=== PATIENT | female | born 1995 | race Two or more races ===

== ENCOUNTER 2025-06-01 09:51 | Inpatient (IN) | payer MEDICAID, OTHER ==
[~2025-06-01] VITALS: Ht 165.1 cm; Wt 65.0 kg
--- NOTE | 2025-06-01 10:31 | ED.PDOC ---
VULNERABILITY ASSESSMENT ANALYST HPI Comments 30 y.o female presents to the ED for a chief complaint of suprapubic pain that started last night and worsened while at home. Patient describes pain as a cramping sensation, states developing shakiness and sweats then shortly after having a near syncopal episode at work. 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 Additionally, patient noted vaginal spotting x 2 days ago which has resolved. She denies any blood clots, fever, chills, nausea, vomiting, back pain, or recent trauma to pain site. She denies any medical history or allergies. Chief Complaint: Abdominal Pain Time Seen by MD: 10:09 Reviewed Notes: Nurses Notes, Medications, Allergies Allergies: Coded Allergies: NO KNOWN ALLERGIES (Unverified , 06/01/25) Information Source: Patient Mode of Arrival: Ambulatory Timing: Hours Severity: Moderate Vaginal Discharge: None Vaginal Lesions: None Bleeding Quality: Products of Conception Vaginal Mass: None Onset Of Mass/Bleeding: Spontaneous Sexual Activity: Last Consensual 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 MACHINE History 3 Para 1 AB 1 LMP 04/25/25 Family History Family History: Reviewed,noncontributory to illness Social History Smoker: Non-Smoker Alcohol: Denies ETOH Use Drugs: Denies Drug Use Lives In: Home Constitutional: denies: chills, diaphoresis, fatigue, fever, malaise, sweats, weakness, others EENTM: denies: blurred vision, double vision, ear bleeding, ear discharge, ear drainage, ear pain, ear ringing, eye pain, eye redness, hearing loss, mouth pain, mouth swelling, nasal discharge, nose bleeding, nose congestion, nose pain, photophobia, tearing, throat pain, throat swelling, voice changes, others Respiratory: denies: cough, hemoptysis, orthopnea, SOB at rest, shortness of breath, SOB with excertion, stridor, wheezing, others Cardiovascular: denies: chest pain, dizzy spells, diaphoresis, Dyspnea on exertion, edema, irregular heart beat, left arm pain, lightheadedness, palpitations, PND, syncope, others Gastrointestinal: reports: abdominal pain; denies: abdomen distended, blood streaked bowels, constipated, diarrhea, dysphagia, difficulty swallowing, he matemesis, melena, nausea, poor appetite, poor fluid intake, rectal bleeding, rectal pain, vomiting, others Genitourinary: reports: abnormal vagina bleeding, ; denies: burning, dyspareunia, dysuria, flank pain, frequency, hematuria, incontinence, pain, vagina discharge, urgency, others Neurological: denies: dizziness, fainting, headache, left sided numbness, left sided weakness, numbness, paresthesia, pre-existing deficit, right sided numbness, right sided weakness, seizure, speech problems, tingling, tremors, weakness, others Musculoskeletal: denies: back pain, gout, joint pain, joint swelling, muscle pain, muscle stiffness, neck pain, others Integumetry: denies: bruises, change in color, change in hair/nails, dryness, laceration, lesions, lumps, rash, wounds, others Allergic/Immunocompromised: denies: Difficulty Healing, Frequent Infections, Hives, Itching, others Hematologic/Lymphatic: denies: anemia, blood clots, easy bleeding, easy bruising, swollen glands, others Endocrine: denies: excessive hunger, excessive sweating, excessive thirst, excessive urination, flushing, intolerance to cold, intolerance to heat, unexplained weight gain, unexplained weight loss, others Psychiatric: denies: anxiety, bipolar disorder, depression, hopeless, panic disorder, schizophrenia, sleepless, suicidal, others All Other Systems: Reviewed and Negative Physical Exam General Appearance: Moderate Distress HEENT: Normal ENT Inspection, Pharynx Normal, TMs Normal Neck: Full Range of Motion, Non-Tender, Normal, Normal Inspection Respiratory: Chest Non-Tender, Lungs Clear, No Accessory Muscle Use, No Respiratory Distress, Normal Breath Sounds Cardiovascular: No Edema, No JVD, No Murmur, No Gallop, Normal Peripheral Pulses, Regular Rate/Rhythm Breast Exam: Deferred Gastrointestinal: No Organomegaly, Non Tender, No Pulsatile Mass, Normal Bowel Sounds, Soft Genitalia: Deferred Pelvic: Deferred Rectal: Deferred Extremities: No calf tenderness, Normal capillary refill, Normal inspection, Normal range of motion, Non-tender, No pedal edema Musculoskeletal : Apperance: Normal Neurologic: Alert, laboratory sampler II-XII nml as Tested, No Motor Deficits, Normal Affect, Normal Mood, No Sensory Deficits Cerebellar Function: Normal Reflexes: Normal Skin: Dry, Normal Color, Warm Peripheral Pulses: 3+ Radial (R), 3+ Radial (L) Lymphatic: No Adenopathy Was a procedure done? Was a procedure done?: No Differential Diagnosis (CLOTH MEASURER MACHINE) Vaginal Bleeding: - Complete, - Incomplete, - Missed, - Threatened, UTI, Vaginitis X-Ray, Labs, Meds, VS Vital Signs Date Time Temp Pulse Resp B/P (MAP) Pulse Ox O2 Delivery O2 Flow Rate FiO2 06/01/25 10:50 97.8 115 18 98/52 (67) 99 97.8 06/01/25 10:50 115 18 97 Room Air 06/01/25 09:58 98.4 97 18 97/58 100 98.4 Lab Test 06/01/25 12:20 06/01/25 11:01 06/01/25 10:20 Range/Units Prothrombin Time Pending Prothrombin Time INR Pending Activated Partial Thromboplast Time Pending Urine Color Yellow Yellow Urine Clarity Turbid H Clear Urine pH 6.5 5.0-9.0 Urine Specific [place] 1.022 1.001-1.035 Urine Protein 1+ H Negative Urine Ketones Trace Negative Urine Blood 1+ H Negative /uL Urine Nitrite Negative Negative Urine Bilirubin Negative Negative Urine Urobilinogen Normal Negative mg/dL Urine Leukocyte Esterase Negative Negative /uL Urine RBC 1 0 - 4 /hpf Urine Microscopic WBC 5 0-5 /HPF Urine Squamous Epithelial Cells Few <5 /hpf Urine Bacteria None seen None Seen /hpf Urine Mucus Few None Seen Urine Glucose Normal Normal mg/dL Beta HCG, Quantitative 1056.1 H 1.5-4.2 mIU/mL Patient alert. Complaining of cramping. Blood pressure is low. Saturation pristine on room air. Establish intravenous access. Was given fluids. Ultrasound reveals ectopic . To prevent any infection she was given Rocephin. Explained to the patient. Continue monitoring. Time of 1ST Reevaluation: 10:27 Reevaluation 1ST: Improved Patient Education/Counseling: Diagnosis, Treatment, Prognosis Family Education/Counseling: No Family Present Departure 1 Departure Time of Disposition: 11:09 Impression: Primary Impression: Ectopic Qualified Codes: O00.90 - Unspecified ectopic without intrauterine Disposition: ADMITTED INPATIENT Admit to: Med Surg Condition: Guarded Critical Care Note Critical Care Time?: No Stability Stability form required: No I personally scribed for RIGOBERTO BERGERON MD ([email or web address]) on 06/01/25 at 10:31. Electronically submitted by Marta Wild ([facility]). RIGOBERTO EBRGERON MD Jun 01, 2025 10:31
[2025-06-01] MEDS: MORPHINE SULFATE INJ 2 MG/ml SYRG IV ONE (11:19)
[2025-06-01 11:20] LABS: Urine Protein, UAD 1+ (Negative)
--- NOTE | 2025-06-01 12:34 | DVH ---
Technique: Real-time ultrasound images through the pelvis using a transabdominal transducer. For bett er evaluation of the ovaries and endometrial stripe, an endovaginal transducer was used. Indication: ectopic Comparison: None Findings: The uterus measures 8.4 cm. Endometrial complex measures 9 mm. No intrauterine identified. Right ovary measures 3.5 x 2.3 x 3.0 cm. Right ovarian peripherally echogenic lesion with hypervascul arity measuring 1.9 x 2.1 cm. There is a moderate to large amount of free fluid and echogenic foci in the pelvis /right adnexal region which may represent blood products / blood clot. Large echogenic le debra in the right adnexal region measuring 7.3 cm Left ovary nonvisualized. Impression: Right ovarian peripherally echogenic lesion with hypervascularity measuring 2.1 cm x 1.9 cm with asso ciated free pelvic fluid and likely hemorrhagic products/clot, most consistent with ruptured ectopic . Findings were communicated to Dr. Calzada at 12:34 p.m. on 06/01/2025. Large right echogenic lesion in the right adnexal region measuring 7.3 cm, likely blood clot in the s etting of ruptured ectopic No intrauterine identified. Left ovary nonvisualized.
[2025-06-01] MEDS: ACETAMINOPHEN IV 1000 MG/100ML (10MG/ML) IV ONE (12:36)
[2025-06-01] MEDS ORDERED: LIDOCAINE HCL 2% TOP JELLY 5ML TOP ONE (12:38)
[2025-06-01] MEDS ORDERED: GLYCOPYRROLATE 0.2 MG/ML 1ML VIAL ONE (12:39)
[2025-06-01] MEDS ORDERED: SUGAMMADEX 200mg/2ml Vial (100MG/ML) IV ONE (12:39)
[2025-06-01] MEDS ORDERED: PROPOFOL 10 MG/ML 20 ML IV ONE (12:39)
[2025-06-01] MEDS ORDERED: LIDOCAINE 2% (LOCAL ANESTH.) PF 5ml SDV ONE (12:39)
[2025-06-01] MEDS ORDERED: ONDANSETRON HCL 4 MG/2 ML VIAL ONE (12:39)
[2025-06-01] MEDS ORDERED: ROCURONIUM 10MG/ML 10ML VIAL IV ONE (12:39)
[2025-06-01] MEDS ORDERED: KETOROLAC TROMETH 30 MG/ML 1ML VIAL ONE (12:39)
--- NOTE | 2025-06-01 13:01 | DVHHP ---
ADMIT DATE: 06/01/2025 CHIEF COMPLAINT: Vaginal bleeding, severe abdominal pain. HISTORY OF PRESENT ILLNESS: The patient is a 30-year-old 3, para 1-0-1-1 female admitted for suprapubic pain, severe pain, and a syncopal episode. The patient's beta HCG was 1000 with large amounts of echogenic blood material in the pelvis all the way to liver. The patient is very much in pain. Ultrasound reveals possible ruptured ectopic. PAST MEDICAL HISTORY: None. PAST SURGICAL HISTORY: One termination. SOCIAL HISTORY: None. FAMILY HISTORY: None. OBSTETRIC AND GYNECOLOGIC HISTORY: One vaginal delivery, one termination. ALLERGIES: No known drug allergies. REVIEW OF SYSTEMS: Consistent with HPI. PHYSICAL EXAMINATION: VITAL SIGNS: Hypotensive. The patient is afebrile. HEENT: Pale conjunctivae. CARDIOVASCULAR: Tachy rate. LUNGS: Clear to auscultation. ABDOMEN: Distended. Positive guarding, rebound. PELVIC: External genitalia within normal. Vaginal bleeding, some bleeding noted. Cervical motion tenderness noted. Uterus 7-week size. Adnexal tenderness noted. EXTREMITIES: No clubbing, cyanosis or edema. IMPRESSION: Ruptured ectopic . PLAN: Laparoscopy, possible exploratory laparotomy. Informed consent obtained. Possibility of loss of affected involved site discussed with the patient. Possibility of infertility discussed with the patient. All questions answered. The patient fully understands. She wishes to proceed with the planned procedure. Marcela Vernon DO MZ/EKT/KT TID: [id number] RECEIPT: [id number]
[2025-06-01 13:04] LABS: INR 1.05 (0.9-1.15); Partial Thromboplastin Time 25.4 SEC (24.5-34.5); Prothrombin Time 11.1 sec (9.3-11.8)
[2025-06-01] MEDS ORDERED: fentaNYL CITRATE 100 MCG/2 ML VL ONE (13:14)
[2025-06-01 13:20] LABS: Hematocrit 32.5 % (36.0-46.0); Hemoglobin 10.8 g/dL (12.2-16.2); Mean Corpuscular Hemoglobin 28.0 pg (28.0-32.0); Mean Corpuscular Volume 84.4 fL (80.0-100.0); Nucleated Red Blood Cells % 0.0 %
[2025-06-01] MEDS: ceFAZolin 2 GM/D5W50ml 50 ML IV ONE (13:33)
[2025-06-01] MEDS ORDERED: PHENYLEPHRINE HCL 10 MG/ML VL ONE (13:48)
[2025-06-01] MEDS ORDERED: SODIUM CHLORIDE LOCK 10 ML ONE (13:48)
[2025-06-01] MEDS ORDERED: ONDANSETRON HCL 4 MG/2 ML VIAL IV PRN ×2 (14:15→14:45)
[2025-06-01] MEDS ORDERED: HYDR-4072 PO ×2 (14:20→14:25)
[2025-06-01] MEDS ORDERED: IBUP-1456 PO ×2 (14:20→14:25)
[2025-06-01] MEDS ORDERED: ZOFR4T PO ×2 (14:20→14:25)
[2025-06-01] MEDS ORDERED: DOCU-94 PO ×2 (14:20→14:25)
[2025-06-01 14:24] VITALS: PULSE 104; RESP 17; O2SAT 98
--- NOTE | 2025-06-01 14:39 | DVHPN2 ---
Visit Coding OBGYN Date of Service: Jun 01, 2025 Billing Provider: DESEAN RUIZ DO PATIENT RELATIONS LIAISON Common Visit Codes: 04962-GLNLPAD INP/OBS CARE (HIGH) PATIENT RELATIONS LIAISON Procedure Codes: 19204-YZG.SRG: EXC.OVRY/PELV/PERIT, 23501-MMZ.SURG:ON OVIDUCT/OVARY, 65798-NG ECTOP PREG TUBAL/OVARIAN DESEAN RUIZ DO Jun 01, 2025 14:39
--- NOTE | 2025-06-01 14:44 | POSTOP ---
Post-Operative Note Post-Operative Note Preop Diagnosis ruptured ectopic preg Postop Diagnosis: same hemoperitoneum left tubal ruptured ectopic Operation performed laparoscopic left salpingectomy,removal of hemoperitoneum Specimen left tube Anesthesia: General Anesthesiologist: tina Blood Loss(fluid mgmt) 20ml ,1500 hemoperitoneum Surgeon Marcela Vernon Emergency Department Coordinator sanjana Implant clips,carole Complications & Mgmt none Date 06/01/25 Time 14:40 Visit Coding OBGYN Date of Service: Jun 01, 2025 Billing Provider: MARCELA VERNON DO SHORT STORY WRITER Common Visit Codes: 76493-[id number] INP/OBS CARE (HIGH) SHORT STORY WRITER Procedure Codes: 95777-LRP.SRG: EXC.OVRY/PELV/PERIT, 82957-YP ECTOP PREG TUBAL/OVARIAN MARCELA VERNON DO Jun 01, 2025 14:44
[2025-06-01] MEDS ORDERED: HYDROmorphone HCL 2 MG/ML VL/or syr IV PRN ×2 (14:45→20:15)
[2025-06-01] MEDS ORDERED: NALOXONE HCL 0.4 MG/ML VIAL IV PRN (14:45)
[2025-06-01] MEDS ORDERED: fentaNYL CITRATE 100 MCG/2 ML VL IV PRN (14:45)
[2025-06-01] MEDS ORDERED: FLUMAZENIL 0.1 MG/ML INJ 10ML MDV IV PRN (14:45)
[2025-06-01] MEDS ORDERED: hydrALAZINE HCL 20 MG/ML VL IV PRN (14:45)
[2025-06-01] MEDS ORDERED: MORPHINE SULFATE INJ 2 MG/ml SYRG IV PRN (15:00)
[2025-06-01] MEDS: LACTATED RINGER'S 1,000 ML IV SCH ×2 (15:00→22:22)
[2025-06-01] MEDS ORDERED: NITROGLYCERIN 0.4 MG SL TAB SL PRN (15:00)
[2025-06-01] MEDS: PROMETHAZINE HCL 6.25 MG/5 ML ORAL SYRUP PO ONE (15:28)
[2025-06-01] MEDS: SODIUM CHLORIDE 0.9% 1,000 ML IV ONE ×3 (15:28→15:35)
[2025-06-01] MEDS: LIDOCAINE W/ EPINEPHRINE 1% 20ML VIAL ONE (15:29)
[2025-06-01] MEDS: BUPIVACAINE 0.5% P/F INJ 10 ML VIAL ONE (15:29)
[2025-06-01] MEDS: CELECOXIB 100 MG CAP PO ONE (15:29)
[2025-06-01] MEDS: GABAPENTIN 300 MG CAP PO ONE (15:30)
[2025-06-01] MEDS: CELECOXIB 100 MG CAP ONE (15:30)
[2025-06-01] MEDS: ACETAMINOPHEN IV 100 ML IV ONE (15:34)
[2025-06-01] MEDS: GABAPENTIN 300 MG CAP ONE (15:34)
--- NOTE | 2025-06-01 16:02 | DVHOP ---
DATE OF SURGERY: 06/01/2025 PREOPERATIVE DIAGNOSIS: Suspect ruptured ectopic . POSTOPERATIVE DIAGNOSES: * Ruptured ectopic , suspect left tube. * Hemoperitoneum. SURGEON: Marcela Vernon MD MANAGER DIALYSIS: Mayito Hernandez. ANESTHESIOLOGIST: Hu. TYPE OF ANESTHESIA: General. CONSENT: The patient was informed of the risks and benefits of the procedure. The patient was advised of loss of affected tube or ovary or both intraoperatively once the ectopic was identified, possibility of infection, complications of anesthesia, postop infection, recurrence of symptoms, damage to blood vessels, DVT, PE, need for repeat surgery in future was discussed with the patient. FINDINGS: * 1500 mL of hemoperitoneum. * Uterus approximately 7 weeks' size. * Right tube and ovary grossly normal appearing. * Left ovary grossly normal appearing. * Left tube inflamed, enlarged in the ampullary region. * Left tube actively bleeding. * Suspect left ectopic, pending pathology. PROCEDURE: Laparoscopic left salpingectomy, removal of hemoperitoneum. DESCRIPTION OF PROCEDURE: The patient was taken to the operating room where she was placed under general anesthesia. She was then prepped and draped in the usual sterile manner in dorsal lithotomy position. Bladder was emptied using a Lockett catheter. Examination under anesthesia revealed the above findings. A weighted speculum was placed in the vagina. Anterior lip of the cervix was grasped using a single-tooth tenaculum. Uterus sounded to 7 cm. HUMI catheter was placed. Attention was then turned to the abdomen where Veress needle was introduced. Abdomen was distended with 3 liters of CO2 gas. Using Visiport under direct visualization, the abdomen was entered through umbilical fold. A 5 mm trocar was placed suprapubically. A 12 mm trocar was placed on the left lateral aspect of the abdomen, 4 cm above from the midline. Survey of the abdomen and pelvis revealed above findings. Right tube appeared completely normal, not inflamed. No bleeding was noted from right side. Large amount of blood clot was located next to the right tube and ovary. Left tube appeared inflamed and swelling in the ampullary region, much enlarged and bluish in discoloration and at the end of the fimbriated end, was bleeding. Left ovary was grossly normal appearing. At this point, ectopic was suspected in the left tube. A SLOAN was then introduced to excise the ectopic. This was done successfully. Hemoclips were applied. Pelvis was copiously irrigated with normal saline. Using Endobag, the specimen was brought out through the 12 mm port. No bleeding was noted. Incisional ports were closed using 4-0 Vicryl as well as 0 Vicryl for bigger port and closing the fascia. The patient tolerated the procedure well. The 12 mm trocar site was closed after the specimen was removed from the abdomen using Endobag. Humi catheter was removed from the vagina and cervix. The patient tolerated the procedure well. She was taken to the recovery room in stable condition. Estimated blood loss was 20 mL; however, hemoperitoneum was approximately 1500 mL. DO SUSANNE Seymour/DANICA TID: [id number] RECEIPT: [id number]
[2025-06-01 17:00] VITALS: BP 110/65; PULSE 96; RESP 16; TEMP 98.1; O2SAT 100
[2025-06-01] MEDS: HYDROmorphone HCL 2 MG/ML VL/or syr IV PRN (18:52)
[2025-06-01 20:01] LABS: Hematocrit 32.6 % (36.0-46.0); Hemoglobin 11.0 g/dL (12.2-16.2); Mean Corpuscular Hemoglobin 28.2 pg (28.0-32.0); Mean Corpuscular Volume 83.8 fL (80.0-100.0); Nucleated Red Blood Cells % 0.0 %
[2025-06-01 21:00] VITALS: BP 116/68; PULSE 85; RESP 18; TEMP 98.1; O2SAT 99
[2025-06-01] MEDS: DOCUSATE SOD 100 MG CAP PO SCH (22:00)
[2025-06-01] MEDS: ceFAZolin 1GM/50ML 50 ML IV SCH (22:22)
[2025-06-01] MEDS: HYDROcodone-ACET 10/325MG TAB PO PRN (23:45)
[2025-06-02] VITALS (9 sets, daily range): BP systolic 89–106; BP diastolic 45–62; PULSE 84–115; RESP 12–18; TEMP 97.5–99.2; O2SAT 96–100
[2025-06-02 06:46] LABS: Hematocrit 26.1 % (36.0-46.0); Hemoglobin 9.0 g/dL (12.2-16.2); Mean Corpuscular Hemoglobin 28.8 pg (28.0-32.0); Mean Corpuscular Volume 83.3 fL (80.0-100.0); Nucleated Red Blood Cells % 0.0 %
[2025-06-02] MEDS: LACTATED RINGER'S 1,000 ML IV ONE (07:45)
--- NOTE | 2025-06-02 09:49 | ECG ---
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
[2025-06-02] MEDS: RHO (D) IMMUNE GLOBULIN 300 MCG INJ IM PRN (16:37)
--- NOTE | 2025-06-02 19:31 | DVHDS2 ---
Discharge Summary Date of Admission Jun 01, 2025 at 14:54 Date of Discharge: Jun 02, 2025 Admitting Diagnosis ectopic Wounds: [facility] Labs/Diagnostic Data: Laboratory Results Test 06/02/25 05:00 06/01/25 12:20 06/01/25 11:01 White Blood Count 9.2 10^3/uL (4.4-10.8) Red Blood Count 3.13 10^6/uL (4.0-5.20) Hemoglobin 9.0 g/dL (12.2-16.2) Hematocrit 26.1 % (36.0-46.0) Mean Corpuscular Volume 83.3 fL (80.0-100.0) Mean Corpuscular Hemoglobin 28.8 pg (28.0-32.0) Mean Corpuscular Hemoglobin Concent 34.6 g/dL (32.0-36.0) Red Cell Distribution Width 13.3 % (11.8-14.3) Platelet Count 223 10^3/uL (140-450) Mean Platelet Volume 9.0 fL (6.9-10.8) Neutrophils (%) (Auto) 83.2 % (37.0-80.0) Lymphocytes (%) (Auto) 11.2 % (10.0-50.0) Monocytes (%) (Auto) 5.5 % (0.0-12.0) Eosinophils (%) (Auto) 0.0 % (0.0-7.0) Basophils (%) (Auto) 0.1 % (0.0-2.0) Neutrophils # (Auto) 7.6 10 ^3/uL (1.6-8.6) Lymphocytes # (Auto) 1.0 10 ^3/uL (0.4-5.4) Monocytes # (Auto) 0.5 10 ^3/uL (0-1.3) Eosinophils # (Auto) 0 10 ^3/uL (0-0.8) Basophils # (Auto) 0 10 ^3/uL (0-0.2) Nucleated Red Blood Cells 0.0 % Beta HCG, Quantitative 383.6 mIU/mL (1.5-4.2) Prothrombin Time 11.1 sec (9.3-11.8) Prothrombin Time INR 1.05 (0.9-1.15) Activated Partial Thromboplast Time 25.4 SEC (24.5-34.5) Urine Color Yellow (Yellow) Urine Clarity Turbid (Clear) Urine pH 6.5 (5.0-9.0) Urine Specific [place] 1.022 (1.001-1.035) Urine Protein 1+ (Negative) Urine Ketones Trace (Negative) Urine Blood 1+ /uL (Negative) Urine Nitrite Negative (Negative) Urine Bilirubin Negative (Negative) Urine Urobilinogen Normal mg/dL (Negative) Urine Leukocyte Esterase Negative /uL (Negative) Urine RBC 1 /hpf (0 - 4) Urine Microscopic WBC 5 /HPF (0-5) Urine Squamous Epithelial Cells Few /hpf (<5) Urine Bacteria None seen /hpf (None Seen) Urine Mucus Few (None Seen) Urine Glucose Normal mg/dL (Normal) Other Laboratory Tests 06/02/25 05:00 Brief Hx & Hospital Course: ruptured ectopic s/p [facility] surgery see op report Operations or Procedures [facility] Condition at Discharge: Good Final Diagnosis/Problems List same hemoperitoneum left tubal ruptured ectopic Discharge Disposition: Home Discharge Instruct/Medications Diet: Regular Activity: Light activity (pelvic rest avoid preg 12 wks) Follow Up/Referral: Dr Vernon 1-2 weeks Medications: resume home meds vit and diet Scheduled Docusate Sodium (Colace), 1 CAP PO BID Scheduled PRN Hydrocodone-Acetaminophen (Hydrocodone/Acetaminophen 10-325 mg), 1 TAB PO Q6HPRN PRN Ibuprofen (Ibuprofen), 800 MG PO TID PRN Ondansetron Odt 4MG Tab (Zofran Po), 4 MG PO Q4HPRN PRN Discharge Statement: "Patient was advised to return to the ER or call 911 if any headaches, dizziness, shortness of breath, chest pain, abdominal pain, bleeding, fevers, or worsening of medical condition. Patient was counseled about treatment plan, medications, possible side effects, patientverbalized understanding. All questions were answered to the best of my ability. This discharge took greater then 30 minutes in planning, reviewing documentation, counseling the patient, and discussing with other team members." ASSESSMENT ASSESSMENT Assessment same hemoperitoneum left tubal ruptured ectopic Visit Coding OBGYN Date of Service: Jun 02, 2025 Billing Provider: ALON VALENTE DO DRAFTER LANDSCAPE Common Visit Codes: NOT BILLABLE DRAFTER [employer]SCAPE Consultation Codes: [id number] CONSULT <40MIN DRAFTER LANDSCAPE Procedure Codes: [id number] LAPROSCOPIC ALON VALENTE DO Jun 02, 2025 19:31
[2025-06-03] VITALS (10 sets, daily range): BP systolic 98–104; BP diastolic 52–62; PULSE 79–95; RESP 16–18; TEMP 96.3–99.8; O2SAT 95–100
[2025-06-03] MEDS ORDERED: KETAMINE 50mg/ML 10ml Vial (500mg/10ml) IV ONE (12:52)
== END 2025-06-03 17:45 | disposition home or self-care (01) | DRG 547 ==
LOC: ER 09:51 → OVERFLOW 14:54 → CENTRAL 17:15 → TELE-CENTR 06-02 21:17
PROVIDERS: ADMIT Obstetrics & Gynecology; ATTEND Obstetrics & Gynecology
PROC: 10T24ZZ Resection of Products of Conception, Ectopic, Percutaneous Endoscopic Approach (ICD-10-PCS; 2025-06-01)
PROC: 0UB64ZZ Excision of Left Fallopian Tube, Percutaneous Endoscopic Approach (ICD-10-PCS; principal; 2025-06-01 13:33)
PROC: 30233S1 Transfusion of Nonautologous Globulin into Peripheral Vein, Percutaneous Approach (ICD-10-PCS; 2025-06-02)
DX: O00.102 Left tubal pregnancy without intrauterine pregnancy (principal); K66.1 Hemoperitoneum
CPT/HCPCS: 36415; 36430; 76801; 76817; 81001; 84702; 85025; 85610; 85730; 86850; 86900; 86901; 90384; 93005; 96365; 96375; G0378; J0131; J1100; J1885; J2003; J2405; J2704; J3490

== ENCOUNTER → 2025-06-06 | Outpatient (CLI) | payer MEDICAID ==
[~2025-06-06] MED LIST: DOCU-94 PO; HYDR-4072 PO; IBUP-1456 PO; ZOFR4T PO
== END | disposition home or self-care (01) ==
LOC: LAB 10:45
PROVIDERS: ATTEND Obstetrics & Gynecology
DX: O03.9 Complete or unspecified spontaneous abortion without complication (principal)
CPT/HCPCS: 36415; 84702